=== PATIENT | female | born 1955 | race Caucasian/White ===

== ENCOUNTER → 2023-07-19 | Outpatient (CLI) | payer MEDICARE ==
[2023-07-19 10:48] LABS: BILIRUBIN Negative (Negative); BLOOD Negative (Negative); CLARITY Clear (Clear); COLOR Yellow (Yellow); GLUCOSE Negative (Negative); KETONE Trace (Negative); LEUKO ESTERASE 2+ (Negative); NITRITE Negative (Negative); PH 5.5 (4.5-8.0); SPECIFIC GRAVITY >= 1.030 (1.001-1.030)
[2023-07-19 13:00] LABS: BACTERIA 2+; MUCOUS 3+
== END | disposition home or self-care (01) ==
LOC: RESCLI 09:02
PROVIDERS: Student in an Organized Health Care Education/Training Program; ATTEND Internal Medicine
DX: M06.9 Rheumatoid arthritis, unspecified (principal); R11.0 Nausea; R21 Rash and other nonspecific skin eruption; R30.0 Dysuria; J45.909 Unspecified asthma, uncomplicated; M67.90 Unspecified disorder of synovium and tendon, unspecified site; Z79.899 Other long term (current) drug therapy; Z88.8 Allergy status to other drugs, medicaments and biological substances; Z98.890 Other specified postprocedural states